=== PATIENT | male | born 1945 | race Caucasian/White ===

== ENCOUNTER → 2018-05-04 | Outpatient (CLI) | payer MEDICARE | END | disposition home or self-care (01) | LOC: PCVCCLINIC 11:20 | PROVIDERS: ATTEND Internal Medicine | DX: R06.09 Other forms of dyspnea (principal); E78.5 Hyperlipidemia, unspecified; K21.9 Gastro-esophageal reflux disease without esophagitis; M15.3 Secondary multiple arthritis; Z87.898 Personal history of other specified conditions | CPT/HCPCS: 93005; G0463 ==

== ENCOUNTER → 2018-05-23 | Outpatient (CLI) | payer MEDICARE ==
[~2018-05-23] MED LIST: HEPARIN for IV BOLUS 10,000 UNIT/10 ML VIAL. ONE; REGADENOSON 0.4 MG/5 ML DISP.SYRIN. IV ONE
--- NOTE | 2018-05-23 13:39 | PCVCIMAG ---
APPROVED REPORT Study performed: 05/23/2018 08:23:23 EXAM: Comprehensive 2D, Doppler, and color-flow Echocardiogram Patient Location: Echo lab Status: routine BSA: 2.18 HR: 61 bpmBP: 132/82 mmHg Rhythm: NSR Other Information Study Quality: Adequate Risk Factors: Cardiac Risk Factors: Hyperlipidemia Indications Dyspnea Chest Pain 2D Dimensions IVSd: 10.20 (7-11mm) LVDd: 52.07 mm PWd: 11.20 (7-11mm)Ascending Ao: 37.32 (22-36mm) LVDs: 42.91 (25-40mm) Left Atrium: 44.89 (27-40mm) Aortic Root: 35.64 mm LV Single Plane 4CH: 51.54 % LV Single Plane 2CH: 51.53 % Biplane EF: 53.0 % Volumes Left Atrial Volume (Systole) Single Plane 4CH: 99.54 mLSingle Plane 2CH: 125.74 mL LA ESV Index: 52.00 mL/m2 Aortic Valve AoV Peak Torrey.: 1.58 m/s AO Peak Gr.: 9.98 mmHgLVOT Max P.21 mmHg LVOT Max V: 1.03 m/s Mitral Valve E/A Ratio: 1.3 MV Decel. Time: 299.32 ms MV E Max Torrey.: 0.53 m/s MV A Torrey.: 0.40 m/s IVRT: 114.19 ms Pulmonary Valve PV Peak Torrey.: 0.85 m/sPV Peak Gr.: 2.92 mmHg Pulmonary Vein P Vein S: 0.31 m/sP Vein A: 0.31 m/s P Vein D: 0.45 m/sP Vein A Dur.: 124.6 msec P Vein S/D Ratio: 0.69 Tricuspid Valve TR Peak Torrey.: 2.39 m/s TR Peak Gr.: 22.88 mmHg TV Vmax: 0.47 m/s Left Ventricle The left ventricle is normal size. There is normal LV segmental wall motion. There is normal left ventricular wall thickness. Left ventricular systolic function is within lower limits of normal. LVEF is 50-55%. Grade II - pseudonormal filling dynamics. Right Ventricle The right ventricle is normal size. The right ventricular systolic function is normal. Atria Left atrium is severely dilated. The right atrium size is normal. Aortic Valve The aortic valve is normal in structure. Trace aortic regurgitation. There is no aortic valvular stenosis. Mitral Valve The mitral valve is normal in structure. Moderate mitral regurgitation. No evidence of mitral valve stenosis. Tricuspid Valve The tricuspid valve is normal in structure. Mild tricuspid regurgitation with PAP of 30 mmHg. Pulmonic Valve The pulmonary valve is normal in structure. Mild pulmonic regurgitation. Great Vessels The aortic root is normal in size. IVC is normal in size and collapses >50% with inspiration. Pericardium There is no pericardial effusion. There is no pleural effusion. <Conclusion> The left ventricle is normal size. LVEF is 50-55%. Left atrium is severely dilated. The aortic valve is normal in structure. The mitral valve is normal in structure. Moderate mitral regurgitation. The tricuspid valve is normal in structure. Mild tricuspid regurgitation with PAP of 30 mmHg. The pulmonary valve is normal in structure. Mild pulmonic regurgitation. There is no pericardial effusion.
--- NOTE | 2018-05-24 12:07 | PCVCIMAG ---
APPROVED REPORT Imaging Protocol: Rest Tc-99m/Stress Tc-99m 1 day Study performed: 05/23/2018 09:09:24 Indication: Chest pain, Dyspnea Patient Location: Out-Patient Stress Nurse: Hortensia Schwartz RN, Venessa Lipscomb RN NM Tech:Edil Orourke NMBAILEEB Ht: 6 ft 0 in Wt: 210 lbs BSA: 2.18 m2 HR: 64 bpm BP: 144/74 mmHg BMI: 28.4 Rhythm: Sinus Rhythm, T wave Abnormality Medical History Medical History: Age, Hyperlipidemia Medications: Nexium, Crestor Allergies: No known drug allergies Exercise History: Physically active Resting Data Rest SPECT myocardial perfusion imaging was performed in supine position 45 minutes following the intravenous injection of 11.1 mCi of Tc-99m Sestamibi. Time of rest injection: 909 Date: 05/23/2018 Administration Route: IV Administration Site: Right AC Pharmacologic Stress Pharmacologic stress test was performed by injecting Regadenoson 0.4 mg IV push over 10-15 seconds immediately followed by the intravenous injection of 35.5 mCi of Tc-99m Sestamibi. Time of stress injection: 1030 Date: 05/23/2018 Administration Route: IV Administration Site: Right AC Gated Stress SPECT was performed 45 minutes after stress injection. The images were gated to evaluate regional wall motion and calculate left ventricular ejection fraction. Stress Test Details Stress Test: Pharmacologic stress was paired with low level exercise. Reason for pharmacologic stress test: Prior Submaximal Stress Tests. HRMax Heart Rate (APMHR): 149 bpm Resting HR: 64 bpmTarget HR (85% APMHR): 126 bpm Max HR Achieved: 114 bpm % of APMHR: 76 Recovery HR: 73 bpm BP Resting BP: 144/74 mmHg Max BP: 161/75 mmHg Recovery BP: 152/72 mmHg ECG Resting ECG: Normal Sinus Rhythm, T wave Abnormality Stress ECG: Sinus Tachycardia, T wave Abnormality Recovery ECG: Normal Sinus Rhythm, T wave Abnormality Clinical Reason for Termination: Completed protocol Stress Symptoms: Dyspnea, Lightheaded Exercise duration: 4 min 0 sec Exercise capacity: 1.6 METs Symptoms resolved with caffeine. Stress ECG Conclusion 1. Adequate response to intravenous Lexiscan 2. Inadequate heart rate for ECG diagnosis Perfusion There is a medium area of moderately reduced uptake in the mid and apical segment of the inferior wall which is seen on the stress images as well as the resting images. This area thickens and moves normally and is most consistent with attenuation artifact. Wall Motion Normal left ventricular wall motion. Nuclear Conclusion ECG Findings: non-diagnostic Clinical Findings: negative for ischemia Nuclear Findings: negative for ischemia Exercise Capacity: not assessed Left Ventricular Function: normal 1. Low risk study 2. Post exercise left ventricular ejection fraction of 67% without wall motion abnormalities Interpreted by: Natalie Stafford MD Electronically Approved: 05/24/2018 12:07:03 <Conclusion> 1. Adequate response to intravenous Lexiscan 2. Inadequate heart rate for ECG diagnosis
== END | disposition home or self-care (01) ==
LOC: PCVCIMAG 09:33
PROVIDERS: ATTEND Internal Medicine
DX: I08.3 Combined rheumatic disorders of mitral, aortic and tricuspid valves (principal); R07.9 Chest pain, unspecified; R06.00 Dyspnea, unspecified
CPT/HCPCS: 78452; 93017; 93306; A9500; J2785; J1644